=== PATIENT | male | born 1965 ===

== ENCOUNTER → 2018-10-06 01:34 | Outpatient (REF) | payer OTHER, SELFPAY ==
[2018-10-06 02:46] LABS: Alanine Aminotransferase 28 IU/L (21-72); Albumin Globulin Ratio 1.3 (1.0-2.8); Alkaline Phosphatase 74 U/L (38-126); Aspartate Aminotransferase 18 IU/L (17-59); BUN Creatinine Ratio 13.6 (6-22); Bilirubin Total 0.7 mg/dL (0.2-1.3); Blood Urea Nitrogen 15 mg/dL (9-20); Calcium 9.3 mg/dL (8.4-10.2); Carbon Dioxide 30 mmol/L (22-32); Chloride 97 mmol/L (98-107); Estimated Glomerular Filt Rate > 60.0 mL/min (>60); Glucose 99 mg/dL (70-100); HEMOLYSIS < 15 (0-50); Sodium 137 mmol/L (137-145)
[2018-10-06 03:02] LABS: Hematocrit 44.3 % (41-53); Hemoglobin 15.8 g/dL (13.5-17.5); Mean Corpuscular HGB Conc 35.6 % (30-36); Mean Corpuscular Hemoglobin 31.7 PG (26-34); Mean Corpuscular Volume 88.9 fL (80-100); Platelet Count 271 X10^3/uL (150-400); Red Blood Cell Count 4.99 X10^6/uL (4.5-5.9); White Blood Cell Count 8.1 X10^3/uL (4.5-11.0)
[2018-10-06 03:07] LABS: Add Manual Diff / Slide Review YES
[2018-10-06 06:50] LABS: Neutrophils Absolute Manual 5427 /uL (3000-5900); Total Cells Counted 100
[2018-10-06 06:51] LABS: Toxic Granulation Present
[2018-10-06 06:52] LABS: Dohle Bodies 2+; Polychromasia 1+
== END ==
LOC: LAB 01:34
PROVIDERS: Visit Provider Naturopath
DX: A09 Infectious gastroenteritis and colitis, unspecified (principal); K92.1 Melena
CPT/HCPCS: 36415; 80053; 85025